=== PATIENT | female | born 1955 | race Caucasian/White ===

== ENCOUNTER 2020-09-10 17:28 | Inpatient (IN) | payer MEDICARE, OTHER ==
[~2020-09-10] VITALS: Ht 162.6 cm; Wt 54.4 kg
[2020-09-10] MEDS ORDERED: QUET25TA PO (18:01)
[2020-09-10] MEDS ORDERED: ACET-868 PO (18:01)
[2020-09-10] MEDS ORDERED: LORA-259 PO (18:01)
[2020-09-10] MEDS ORDERED: CALC1TAB30 PO (18:01)
[2020-09-10] MEDS ORDERED: FLUT16SP16 (18:01)
[2020-09-10] MEDS ORDERED: MAG30ORA PO (18:01)
[2020-09-10] MEDS ORDERED: TEMA7.5C PO (18:01)
[2020-09-10] MEDS ORDERED: BISA10SU11 RC (18:01)
[2020-09-10] MEDS ORDERED: FERR325T23 PO (18:01)
[2020-09-10] MEDS ORDERED: ATOR10TA PO (18:01)
[2020-09-10] MEDS ORDERED: NA P133E RC (18:01)
[2020-09-10] MEDS ORDERED: PANT40TA2 PO (18:01)
[2020-09-10] MEDS ORDERED: RISP0.2515 PO ×2 (18:01)
[2020-09-10] MEDS ORDERED: BENZ0.5T43 PO (18:01)
[2020-09-10] MEDS ORDERED: MAGN400O6 PO (18:01)
[2020-09-10] MEDS ORDERED: DOCU-141 PO (18:01)
[2020-09-10] MEDS ORDERED: EMPA10TA PO (18:01)
[2020-09-10] MEDS ORDERED: GABA-532 PO ×2 (18:01)
[2020-09-10] MEDS ORDERED: GEMF600T PO (18:01)
[2020-09-10] MEDS ORDERED: SENN-261 PO (18:01)
[2020-09-10 18:17] LABS: BILIRUBIN,URINE NEGATIVE (NEGATIVE); BLOOD, URINE TRACE-INTA Ery/uL (NEGATIVE); COLOR,URINE YELLOW (YELLOW); KETONES,URINE NEGATIVE (NEGATIVE); LEUKOCYTE ESTERASE ,URINE MODERATE (NEGATIVE); NITRITE, URINE POSITIVE (NEGATIVE); PROTEIN,URINE NEGATIVE (NEGATIVE); UGLUCOSE >=1000 mg/dL (NEGATIVE); UROBILINOGEN,URINE 0.2 EU/dL (0.2)
--- NOTE | 2020-09-10 18:30 | NUR ---
Patient came in to the er [facility], from [facility], +SI with plan to break a glass and cut her wrist. On roomair, breathing evenly and unlabored. connected to the monitor and pulse ox. kept comfortable, will continue to monitor accordingly.
[2020-09-10 18:39] LABS: APPEARANCE,URINE CLOUDY (CLEAR); BACTERIA,URINE Moderate /HPF (None Seen); SQUAMOUS EPITHELIAL CELL,UR Few /HPF (None Seen); WBC,URINE 51-80 /HPF (0-3)
[2020-09-10 19:04] LABS: ALANINE AMINOTRANSFERASE 21 U/L (12-78); ALCOHOL, BLOOD < 3 mg/dL (0-0); ALKALINE PHOSPHATASE 109 U/L (46-116); ASPARTATE AMINOTRANSFERASE 17 U/L (15-37); BILIRUBIN,DIRECT 0.1 mg/dL (0.0-0.2); BILIRUBIN,TOTAL 0.4 mg/dL (0.2-1.0); CALCIUM, SERUM 9.8 mg/dL (8.5-10.1); CARBON DIOXIDE 25 mmol/L (21-32); CHLORIDE 98 mmol/L (98-107); GLUCOSE 120 mg/dL (74-106); SODIUM SERUM 136 mmol/L (136-145); UREA NITROGEN, BLOOD 23 mg/dL (7-18)
[2020-09-10 19:14] LABS: POTASSIUM 2.7 mmol/L (3.5-5.1)
--- NOTE | 2020-09-10 19:36 | NUR ---
20g iv line started on LAC
[2020-09-10] MEDS ORDERED: CEFTRIAXONE 1 G in IV D5W 50 ML IV ONE (20:00)
[2020-09-10] MEDS ORDERED: IV NS 0.9% 1,000 ML IV ONE (20:00)
[2020-09-10] MEDS ORDERED: POTASSIUM CHLORIDE 20 MEQ TAB.PRT.SR PO ONE ×2 (20:00→20:05)
[2020-09-10] MEDS ORDERED: CEFTRIAXONE 1GM BAG (ER ONLY) 50 ML IV ONE (20:05)
[2020-09-10] MEDS ORDERED: POTASSIUM CL. PREMIX PERIPHER. 200 ML ONE (20:05)
[2020-09-10 20:12] LABS: BASOPHILS % (AUTO) 0.4 % (0.0-2.0); EOSINOPHILS % (AUTO) 1.7 % (0.0-6.0); HEMATOCRIT 44 % (33-45); HEMOGLOBIN 14.5 g/dL (11.5-14.8); LYMPHOCYTES % (AUTO) 17.9 % (20.0-44.0); MEAN CORPUSCULAR HGB CONC 33 g/dl (31.0-36.0); MEAN CORPUSCULAR VOLUME 91 fL (82-100); MONOCYTES # (AUTO) 0.4 /CMM (0.1-1.30); MONOCYTES % (AUTO) 7.2 % (2.0-12.0); NEUTROPHILS # (AUTO) 3.9 /CMM (1.8-8.9); NEUTROPHILS % (AUTO) 72.8 % (43.0-81.0); PLATELET COUNT (AUTO) 97 /CMM (150-450); RED BLOOD CELL COUNT(AUTO) 4.85 MIL/uL (4.0-5.2); WHITE BLOOD COUNT (AUTO) 5.4 K/uL (4.3-11.0)
[2020-09-10 20:33] LABS: EOSINOPHILS % (MANUAL) 3 % (0-4); LYMPHOCYTES % (MANUAL) 19 % (16-48); MONOCYTES % (MANUAL) 7 % (0-11.0); NEUTROPHILS % (MANUAL) 71 (42-76)
[2020-09-10] MEDS: POTASSIUM CL. PREMIX PERIPHER. 50 ML IV SCH ×4 (20:37→23:34)
--- NOTE | 2020-09-10 20:38 | NUR ---
bag 1 out of 2 is administered Addendum: 09/10/20 at 2117 by AYAAN of potassium chloride
--- NOTE | 2020-09-10 20:49 | NUR ---
BED ASSIGNMENT 116-2
[2020-09-10] MEDS ORDERED: LABETALOL 20 MG/4 ML VIAL IV ONE (21:00)
[2020-09-10] MEDS ORDERED: LABETALOL HCL IV 100MG VIAL ONE (21:04)
--- NOTE | 2020-09-10 21:15 | NUR ---
REC'D NEG COVID RESULTS
--- NOTE | 2020-09-10 21:19 | NUR ---
Received report from BLANCA Perry for [facility]
--- NOTE | 2020-09-10 21:22 | NUR ---
report given to Jes
--- NOTE | 2020-09-10 21:37 | NUR ---
bag 2 of potassium chloride was administered. end time: 9512
--- NOTE | 2020-09-10 21:49 | NUR ---
pt was transferred to the first floor. the rest of possium chloride iv to be given was endorsed and handed to the RN Maryuri
[2020-09-10] MEDS ORDERED: ONDANSETRON HCL/PF 4 MG/2 ML VIAL IVP PRN (22:00)
[2020-09-10] MEDS ORDERED: Z GUARD REMEDY 2 OZ OINT TP PRN (22:00)
[2020-09-10] MEDS ORDERED: risperiDONE 1 MG TABLET PO SCH (22:00)
[2020-09-10] MEDS ORDERED: ACETAMINOPHEN 325 MG TABLET PO PRN (22:00)
[2020-09-10] MEDS ORDERED: QUETIAPINE FUMARATE 25 MG TABLET PO SCH (22:00)
[2020-09-10] MEDS ORDERED: GABAPENTIN 100 MG CAPSULE PO SCH (22:00)
[2020-09-10] MEDS ORDERED: ATORVASTATIN 10 MG TABLET PO SCH (22:00)
[2020-09-10] MEDS ORDERED: Potassium Chloride 20 MEQ in IV LR 1000 ML 1,000 ML IV PRN (22:00)
[2020-09-10] MEDS ORDERED: LORAZEPAM 1 MG TABLET PO PRN (22:00)
[2020-09-10 22:27] VITALS: BP 178/98
--- NOTE | 2020-09-10 22:42 | NUR ---
VACUUM METALIZER OPERATOR NOTE: Pt transferred to unit via gurney. Ambulated to bed w/ steady gait. Admit dx of hypokalemia. A&Ox2, confused. On room air, breathing even and unlabored. No SOB or resp distress noted at this time. SR on tele monitor. IV site on left forearm #20 patent and flushed w/ KCl infusing from ER. Skin check done, skin intact. Pt had suicidal ideations in ER, but denies any ideations or plans as of this time. Denied pain at this time. Safety measures in place. Will continue to monitor.
--- NOTE | 2020-09-10 22:45 | NUR ---
RN NOTE: Rec'd call from refrigeration operator pharmacy regarding pt's Lovenox order. Per pharmacy, pt's platelets too low for Lovenox. Clarified order with refrigeration operator, Dr. Hare who said ok to hold. Noted.
[2020-09-11] VITALS: BP 155/82
--- NOTE | 2020-09-11 00:32 | NUR ---
RN NOTE: Pt to have IV fluids of KCl 20meq in LR. Per RN supervisor forming department, 20meq of KCl only comes in NS or D51/2. Paged solar panel installation supervisor Bentley Hare who gave new order for LR without the potassium. Order noted and carried out.
[2020-09-11] MEDS ORDERED: IV LR 1000 ML 1,000 ML IV PRN (01:00)
[2020-09-11 04:00] VITALS: BP 122/89
[2020-09-11 06:21] LABS: BASOPHILS # (AUTO) 0.1 /CMM (0.0-0.2); BASOPHILS % (AUTO) 1.6 % (0.0-2.0); EOSINOPHILS % (AUTO) 1.5 % (0.0-6.0); HEMATOCRIT 44 % (33-45); HEMOGLOBIN 14.4 g/dL (11.5-14.8); LYMPHOCYTES # (AUTO) 0.9 /CMM (0.8-4.8); LYMPHOCYTES % (AUTO) 14.7 % (20.0-44.0); MEAN CORPUSCULAR HGB CONC 33 g/dl (31.0-36.0); MEAN CORPUSCULAR VOLUME 91 fL (82-100); MONOCYTES # (AUTO) 0.4 /CMM (0.1-1.30); MONOCYTES % (AUTO) 5.9 % (2.0-12.0); NEUTROPHILS # (AUTO) 4.9 /CMM (1.8-8.9); NEUTROPHILS % (AUTO) 76.3 % (43.0-81.0); PLATELET COUNT (AUTO) 107 /CMM (150-450); RED BLOOD CELL COUNT(AUTO) 4.82 MIL/uL (4.0-5.2); WHITE BLOOD COUNT (AUTO) 6.4 K/uL (4.3-11.0)
--- NOTE | 2020-09-11 07:02 | NUR ---
RN CLOSING NOTES: No acute changes noted throughout shift. Remains on room air, no SOB or resp distress noted. Breathing even and unlabored. SR w/ PVC's on tele monitor. 1:1 sitter at bedside. LFA #20 patent and flushing w/ lactated ringers infusing at 80ml/hr. Dressing c/d/i. Kept clean/dry. All due meds given as ordered. Safety measures in place. Will endorse to oncoming nurse for [facility].
[2020-09-11 07:08] LABS: CALCIUM, SERUM 9.7 mg/dL (8.5-10.1); CREATININE 0.7 mg/dL (0.6-1.3); MAGNESIUM 2.5 mg/dL (1.8-2.4); PHOSPHORUS 2.8 mg/dL (2.5-4.9); POTASSIUM 3.2 mmol/L (3.5-5.1)
[2020-09-11] MEDS ORDERED: PANTOPRAZOLE 40 MG TABLET.DR PO SCH (07:30)
--- NOTE | 2020-09-11 07:30 | NUR ---
HSE ADVISOR AM NOTES RECEIVED PT IN BED, AWAKE ALERT X 2, ABLE TO MAKE NEEDS KNOWN, WITH EPISODES OF CONFUSION.ON ROOM AIR, NOT IN ANY DISTRESS, NO SOB, RESPIRATION UNLABORED, SINUS RHYTHM ON MONITOR, HR 80, DENIES PAIN OR DISCOMFORT AT THIS TIME. LEFT FA G18 IV WITH LR AT 80ML/HR. FLUSHES WELL, SITE CLEAR, ON CCHO DIET, ABLE TO AMBULATE TO TOILET WITH ASSISTIVE DEVICE, NO SKIN ISSUES, DISCUSSED PLAN OF CARE, UNABLE TO FULLY UNDERSTAND. SAFETY MEASURES IN PLACE. BED LOW LOCKED, SR UP X 2. SITTER AT BEDSIDE. CALL LIGHT WITHIN REACH. WILL CONTINUE TO MONITOR
[2020-09-11 08:00] VITALS: BP 153/84
[2020-09-11] MEDS ORDERED: POTASSIUM CHLORIDE 20 MEQ TAB.PRT.SR PO ONE (09:00)
[2020-09-11] MEDS ORDERED: ENOXAPARIN SODIUM 40 MG/0.4 ML DISP.SYRIN SQ SCH (09:00)
[2020-09-11] MEDS ORDERED: FLUTICASONE PROPIONATE 16 GM BOTTLE NS SCH (09:00)
[2020-09-11] MEDS ORDERED: risperiDONE 0.25 MG TABLET PO SCH (09:00)
[2020-09-11] MEDS ORDERED: GABAPENTIN 100 MG CAPSULE PO SCH (09:00)
[2020-09-11] MEDS: BENZTROPINE MESYLATE (1 MG) 1 MG TABLET PO SCH ×2 (09:13→16:54)
[2020-09-11] MEDS: FERROUS SULFATE (325 MG) 325 MG/TAB TABLET PO SCH ×2 (09:13→16:54)
[2020-09-11] MEDS: GEMFIBROZIL 600 MG TABLET PO SCH ×2 (09:18→16:54)
--- NOTE | 2020-09-11 09:30 | NUR ---
RN NOTES DUE MEDS GIVEN
[2020-09-11 12:00] VITALS: BP 131/98
--- NOTE | 2020-09-11 16:33 | NUR ---
Rn Transitional Care met with the patient at bedside. Patient is a 65-year-old female. Patient has a 1:1 sitter at bedside. Patient presented to [facility] with suicidal plan to break glass and cut her wrist. SW was able to confirm date of and current address on face sheet. At the beginning of this interview, patients affect was observed to be flat, and patient did not provide much information to this SW. However as this interview progressed, social worker aide observed patient smiling at times. Patient became more engaged in the interview and was able to provide some information, including that she has an older sister Radhika who lives in [place] and brother Jaylyn who lives in [place]. Patient then began stating They want to send me home because my breath stinks. I do not want to go home yet. Per patients sitter, patient has been given mouth wash and patient has swallowed instead of spitting it out. SW offered the patient the opportunity to brush her teeth and the patient remained quiet with a smile on her face. SW asked the patient if she had suicidal thoughts and patient remained quiet. Instructional Technology Specialist was not able to obtain additional information from the patient; patient is a poor historian. SW spoke with singeing torch operator Amy and per singeing torch operator Amy, a psychiatry consult has been placed and currently waiting on psychiatrist to meet with the patient.
--- NOTE | 2020-09-11 17:25 | NUR ---
RN NOTES PATIENT DISCHARGED TO GPS, CLEARED BY MD, STABLE CONDITION. PATIENT APPEARS CALM THE WHOLE SHIFT, BUT WITH EPISODE OF BEING WITHDRAWN, FLAT AFFECT, AND MOSTLY SMILING AND AVOIDING QUESTIONS. NO SOLID AND CLEAR ANSWERS. WAS SEEN BY INTAKE, AWAITING FOR PSYCH TO SEE PATIENT. PROVIDED DISCHARGE INSTRUCTIONS, HEALTH TEACHINGS, AND MED RECON LIST. ALL BELONGINGS CHECKED AND RETURNED. ALL PAPERWORKS SIGNED. ACCOMPANIED BY FLORENCIO AND DG CHARGE NURSE TO [facility] UNIT VIA WHEELCHAIR. REPORT GIVEN TO STAFF EARLIER.
[2020-09-11] MEDS ORDERED: ENOX40DI SQ (17:54)
[2020-09-11] MEDS ORDERED: ALLA266C2 TP (17:54)
[2020-09-11] MEDS ORDERED: DOCUSATE SODIUM 100 MG CAPSULE PO SCH (18:00)
== END 2020-09-11 17:05 | DRG 641 ==
LOC: ER 17:44 → MEDSG1 20:55 → TELE1 22:24 → MEDSG1 09-11 07:52
PROVIDERS: ADMIT Nurse Practitioner Acute Care; ATTEND Nurse Practitioner Acute Care
DX: E87.6 Hypokalemia (principal); N39.0 Urinary tract infection, site not specified; R45.851 Suicidal ideations; E78.5 Hyperlipidemia, unspecified; I10 Essential (primary) hypertension; F20.9 Schizophrenia, unspecified; J44.9 Chronic obstructive pulmonary disease, unspecified; F31.9 Bipolar disorder, unspecified; E11.9 Type 2 diabetes mellitus without complications; Z90.49 Acquired absence of other specified parts of digestive tract; Z79.899 Other long term (current) drug therapy; K21.9 Gastro-esophageal reflux disease without esophagitis; K58.9 Irritable bowel syndrome, unspecified; F41.9 Anxiety disorder, unspecified; J45.909 Unspecified asthma, uncomplicated
CPT/HCPCS: 36415; 80048-TC; 80061-TC; 80076-TC; 81000-TC; 83735-TC; 84100-TC; 85025-TC; 87081-TC; G0378; G0480; J0696; J1650; J3480; J3490; J7030; J7060; J7120

== ENCOUNTER 2020-09-11 17:13 | Inpatient (IN) | payer MEDICARE, OTHER ==
[~2020-09-11] VITALS: Ht 162.6 cm; Wt 54.9 kg
[~2020-09-11 17:13] MED LIST: ACET-868 PO; ATOR10TA PO; BENZ0.5T43 PO; BISA10SU11 RC; CALC1TAB30 PO; DOCU-141 PO; EMPA10TA PO; FERR325T23 PO; FLUT16SP16; GABA-532 PO; GEMF600T PO; LORA-259 PO; MAG30ORA PO; MAGN400O6 PO; NA P133E RC; PANT40TA2 PO; QUET25TA PO; RISP0.2515 PO; SENN-261 PO; TEMA7.5C PO
[2020-09-11] MEDS ORDERED: MAGNESIUM HYDROXIDE 30 ML UDC PO PRN (17:30)
[2020-09-11] MEDS ORDERED: BLOOD SUGAR DIAGNOSTIC 1 EACH STRIP IN ONE (17:30)
--- NOTE | 2020-09-11 17:30 | NUR ---
RN NOTE- PT ARRIVED FROM [facility] WITH DEPRESSION ON A 5150 DTS. SECONDARY DX UTI, HTN, ASTHMA, COPD, HYPOKALEMIA (REPLACED ON [facility]). PT HAS NKA. NOTIFIED OF ADMISSION, ORDERS RECEIVED AND COMPLIED WITH. MRSA SWAB DONE AND LAB NOTIFIED. BS ACCU-CHECK- 168. PT ALERT ORIENTED PERSON PLACE PURPOSE. PT IS 5' 4" TALL. WEIGHT- 121 POUNDS. VS- B/P- 160/102, HR- 98, RR- 20, SATURATION -99%, AFEBRILE 98.0. PTS BP AND HEART RATE HIGHER SHE'S ANXIOUS COMING TO UNIT. CONSENTS COMPLETED. PT PLACED IN ROOM AND NEEDS ATTENDED. INCOMING NOC SHIFT TO COMPLETE ADMISSION
[2020-09-11] MEDS ORDERED: ENOX40DI SQ (17:54)
[2020-09-11] MEDS ORDERED: ALLA266C2 TP (17:54)
[2020-09-11 18:13] VITALS: BP 162/100
--- NOTE | 2020-09-11 18:15 | NUR ---
RN-CO: DR DAVID HAY WAS REQUESTED TO RECONCILE HOME MEDICATIONS.
--- NOTE | 2020-09-11 18:41 | NUR ---
RN-CO: SIBLING GORDY LUJAN IS AWARE THAT PATIENT IS BEING ADMITTED.
[2020-09-11 19:30] VITALS: BP 181/120
[2020-09-11] MEDS ORDERED: Z GUARD REMEDY 2 OZ OINT TP PRN (19:30)
[2020-09-11] MEDS ORDERED: hydrALAZINE HCL 10 MG TABLET PO PRN (19:30)
[2020-09-11] MEDS ORDERED: ACETAMINOPHEN 325 MG TABLET PO PRN (19:30)
[2020-09-11] MEDS: AMLODIPINE BESYLATE 5 MG TABLET PO SCH (19:51)
[2020-09-11 21:35] VITALS: BP 152/98
[2020-09-11] MEDS: ATORVASTATIN 10 MG TABLET PO SCH (21:39)
--- NOTE | 2020-09-11 21:40 | NUR ---
GPS RN NOTES: RECHECKED PTS VITALS WITH BP 152/98, HR 97, OXYGEN 98, TEMP 97.7, RESP 18. NO RESP DISTRESS, BREATHING EVEN AND UNLABORED, NO PAIN AT THIS TIME. PT STATED, "IM OKAY. THANK YOU FOR YOUR HELP." CONTINUE TO MONITOR.
[2020-09-11] MEDS ORDERED: MIRTAZAPINE 15 MG TABLET PO SCH (22:00)
--- NOTE | 2020-09-11 23:02 | NUR ---
GPS RN NOTES: ADMISSION ADMITTED 65 YEAR OLD FEMALE. PT ADMITTED FROM [facility] TO [facility] ON 515. [facility] PER [facility] PT CAME DUE TO SUICIDAL IDEATION WITH A PLAN TO CUT HER WRISTS AND TOLD STAFF THAT SHE WANTED TO BREAK A MIRROR AND KILL HERSELF.PT HAS A LONG HISTORY OF MENTAL HEALTH ISSUES. PT HAS NOT BEEN ABLE TO CONTRACT FOR SAFETY.UPON FACE TO FACE ASSESSMENT PT IS A/O X2-3, COOPERATIVE, FORGETFUL, FLAT AFFECT, DEPRESSED, ANXIOUS, RESERVED, GUARDED, QUIET, SMILING AT TIMES, DISORGANIZED, AND IN DENIAL WHY SHE IS HERE. PT IS VAGUE WHEN ASK ABOUT SI AND PREFERS TO STAY QUIET. PT STATED, "IM FINE." PT DENIES HI AT THIS TIME. PT REFUSED TO SIGN CONSENT PAPERS DUE TO CONFUSION. ENVIRONMENTAL SAFETY CHECK DONE Q15 MIN. ENCOURAGE TO VERBALIZE THOUGHTS AND FEELINGS TO STAFF. ORIENTED PT TO THE UNIT. NURSING ASSESSMENT DONE. SKIN ASSESSMENT DONE. SKIN INTACT. MICA MINER BLASTING CHERRY SORTER SATNAM CAME ASSESSED PT AND REVIEWED MED RECON. DR ADAN CAME TO ASSESS PT WELL WITH NEW ORDERED NOTED AND CARRIED OUT. PTS BROTHER GORDY CALLED AND IS AWARE REGARDING PTS ADMISSION. PT RIGHTS DISCUSSED BY COAT FELLER. PROVIDED PT WITH HANDBOOK AND MED GUIDE. NO SOB. BREATHING EVEN AND UNLABORED. BED ALARM ON. NO PAIN AT THIS TIME. NO RESP DISTRESS.
[2020-09-12 07:16] LABS: ALBUMIN 4.6 g/dL (3.4-5.0); BILIRUBIN,TOTAL 0.9 mg/dL (0.2-1.0); CALCIUM, SERUM 10.2 mg/dL (8.5-10.1); CREATININE 0.8 mg/dL (0.6-1.3); POTASSIUM 3.3 mmol/L (3.5-5.1); TOTAL PROTEIN, SERUM 9.1 g/dL (6.4-8.2)
[2020-09-12] MEDS: AMLODIPINE BESYLATE 5 MG TABLET PO SCH (08:12)
[2020-09-12] MEDS: PANTOPRAZOLE 40 MG TABLET.DR PO SCH (08:12)
[2020-09-12] MEDS: FLUTICASONE PROPIONATE 16 GM BOTTLE NS SCH (08:13)
[2020-09-12] MEDS: GEMFIBROZIL 600 MG TABLET PO SCH ×2 (08:17→17:38)
[2020-09-12] MEDS: risperiDONE 1 MG TABLET PO SCH ×2 (08:17→17:38)
[2020-09-12] MEDS: FERROUS SULFATE (325 MG) 325 MG/TAB TABLET PO SCH ×2 (08:17→17:38)
[2020-09-12] MEDS ORDERED: POTASSIUM CHLORIDE 20 MEQ TAB.PRT.SR PO SCH (09:30)
--- NOTE | 2020-09-12 11:50 | NUR ---
SNF Contact: MONTSE contacted Vijaya ([phone]) from [facility] and inquired if the pt can return to the SNF and she stated that the pt will be able to when stable.
--- NOTE | 2020-09-12 11:58 | NUR ---
Family Contact: MONTSE called the pts brother, Jaylyn ([phone]), and informed him about the pts admission to the [facility] unit. He stated that the goal for the pt is to go to an assisted living but the pt would need to stabilize much further. MONTSE stated that the recommendation is for a SNF and then the pt will be able to go to assisted from there once she is more stable. Pts brother agreed.
--- NOTE | 2020-09-12 15:02 | NUR ---
Initial Discharge Plan: Pt currently resides at [facility] SNF located at [address] [place] [address], [place] [address]; ([phone]). Per pt, she would like to return. SW will work with the pt and the MD regarding appropriate discharge planning. SW will form a safe and proper discharge plan.
[2020-09-12 16:00] VITALS: BP 107/82
[2020-09-12] MEDS: DOCUSATE SODIUM 100 MG CAPSULE PO SCH (17:38)
[2020-09-12] MEDS: LORAZEPAM 0.5 MG TABLET PO PRN (18:43)
--- NOTE | 2020-09-12 18:44 | NUR ---
RN NOTE:MEDICATED WITH ATIVAN 1MG PO X1 FOR ANXIETY WILL CONTINUE TO MONITOR .
[2020-09-12 20:00] VITALS: BP 147/70
[2020-09-12] MEDS: ATORVASTATIN 10 MG TABLET PO SCH (21:16)
--- NOTE | 2020-09-13 00:01 | NUR ---
GPS RN NOTES: UPON DOING ROUNDS, PT AWAKE WALKING IN AND OUT OF HER ROOM. ASKED PT TO EXPRESS THOUGHTS AND FEELINGS TO STAFF. PT STATED, "NOTHING." OFFERED RESTORIL PRN ORDERED. PT REFUSED AND STATED "ILL SLEEP. ILL SLEEP." PT STILL REFUSED X3. CONTINUE TO MONITOR.
[2020-09-13 06:47] LABS: BASOPHILS % (AUTO) 0.1 % (0.0-2.0); EOSINOPHILS % (AUTO) 1.5 % (0.0-6.0); HEMATOCRIT 43 % (33-45); LYMPHOCYTES # (AUTO) 1.5 /CMM (0.8-4.8); LYMPHOCYTES % (AUTO) 19.9 % (20.0-44.0); MEAN CORPUSCULAR HGB CONC 33 g/dl (31.0-36.0); MEAN CORPUSCULAR VOLUME 90 fL (82-100); MONOCYTES # (AUTO) 0.7 /CMM (0.1-1.30); MONOCYTES % (AUTO) 8.9 % (2.0-12.0); NEUTROPHILS # (AUTO) 5.2 /CMM (1.8-8.9); NEUTROPHILS % (AUTO) 69.6 % (43.0-81.0); PLATELET COUNT (AUTO) 121 /CMM (150-450); RED BLOOD CELL COUNT(AUTO) 4.74 MIL/uL (4.0-5.2); WHITE BLOOD COUNT (AUTO) 7.5 K/uL (4.3-11.0)
[2020-09-13 07:47] LABS: BILIRUBIN,TOTAL 0.8 mg/dL (0.2-1.0); CALCIUM, SERUM 9.8 mg/dL (8.5-10.1); CREATININE 0.9 mg/dL (0.6-1.3); POTASSIUM 3.1 mmol/L (3.5-5.1)
[2020-09-13 08:00] VITALS: BP 113/75
[2020-09-13] MEDS: AMLODIPINE BESYLATE 5 MG TABLET PO SCH (08:46)
[2020-09-13] MEDS: GEMFIBROZIL 600 MG TABLET PO SCH ×2 (08:46→16:35)
[2020-09-13] MEDS: FERROUS SULFATE (325 MG) 325 MG/TAB TABLET PO SCH ×2 (08:46→16:35)
[2020-09-13] MEDS: risperiDONE 1 MG TABLET PO SCH ×2 (08:46→16:34)
[2020-09-13] MEDS: PANTOPRAZOLE 40 MG TABLET.DR PO SCH (08:46)
[2020-09-13] MEDS: FLUTICASONE PROPIONATE 16 GM BOTTLE NS SCH (09:08)
[2020-09-13] MEDS ORDERED: POTASSIUM CHLORIDE 20 MEQ TAB.PRT.SR PO ONE (09:30)
[2020-09-13 16:00] VITALS: BP 146/98
[2020-09-13] MEDS: DOCUSATE SODIUM 100 MG CAPSULE PO SCH (17:16)
--- NOTE | 2020-09-13 18:38 | NUR ---
GPS/RN-NOTES UNABLE TO COLLECT URINE SPECIMEN DUE TO PATIENT STATED FORGOT TO SAFE URINE. WILL ENDORSE TO INCOMING SHIFT FOR FOLLOW UP AND CONTINUITY OF CARE.
[2020-09-13 20:08] VITALS: BP 114/66
[2020-09-13] MEDS: ATORVASTATIN 10 MG TABLET PO SCH (21:10)
[2020-09-13 21:38] LABS: BILIRUBIN,URINE NEGATIVE (NEGATIVE); BLOOD, URINE NEGATIVE Ery/uL (NEGATIVE); COLOR,URINE YELLOW (YELLOW); LEUKOCYTE ESTERASE ,URINE TRACE (NEGATIVE); NITRITE, URINE NEGATIVE (NEGATIVE); PH,URINE 5.5 (5.0-8.0); PROTEIN,URINE NEGATIVE (NEGATIVE); UGLUCOSE 500 MG/DL mg/dL (NEGATIVE); UROBILINOGEN,URINE 0.2 EU/dL (0.2)
[2020-09-13 22:37] LABS: BACTERIA,URINE None seen /HPF (None Seen); RBC,URINE 0-2 /HPF (0-2); SQUAMOUS EPITHELIAL CELL,UR Few /HPF (None Seen)
--- NOTE | 2020-09-14 06:26 | NUR ---
GPS RN NOTES: PT. RESTING IN HER ROOM, CALM NOTED AT THIS TIME . NO S/S OF DISTRESS NOTED ,NO CHANGE OF CONDITION NOTED , ALL CARE NEEDS MET ANTICIPATED. MED COMPLIANT ,NO BEHAVIOR PROBLEMS NOTED ,WILL CONTINUE TO MONITOR FOR SAFETY BEHAVIOR, AND ENDORSE TO AM SHIFT FOR CONTINUITY OF CARE.
[2020-09-14 08:00] VITALS: BP 105/65
[2020-09-14] MEDS: risperiDONE 1 MG TABLET PO SCH ×2 (08:44→16:53)
[2020-09-14] MEDS: GEMFIBROZIL 600 MG TABLET PO SCH ×2 (08:44→16:52)
[2020-09-14] MEDS: PANTOPRAZOLE 40 MG TABLET.DR PO SCH (08:44)
[2020-09-14] MEDS: FLUTICASONE PROPIONATE 16 GM BOTTLE NS SCH (08:44)
[2020-09-14] MEDS: AMLODIPINE BESYLATE 5 MG TABLET PO SCH (08:44)
[2020-09-14] MEDS: FERROUS SULFATE (325 MG) 325 MG/TAB TABLET PO SCH ×2 (08:44→16:52)
[2020-09-14] MEDS: CEPHALEXIN MONOHYDRATE 500 MG CAPSULE PO SCH ×2 (12:56→21:10)
[2020-09-14 16:00] VITALS: BP 126/87
[2020-09-14] MEDS: DOCUSATE SODIUM 100 MG CAPSULE PO SCH (16:52)
[2020-09-14 19:48] VITALS: BP 140/79
[2020-09-14] MEDS: ATORVASTATIN 10 MG TABLET PO SCH (21:10)
[2020-09-15] MEDS: ACETAMINOPHEN 325 MG TABLET PO PRN (01:24)
--- NOTE | 2020-09-15 01:27 | NUR ---
GPS RN NOTE: PAIN PT. C/O OF STOMACH PAIN AND REQUESTED TYLENOL. ADMINISTERED TYLENOL 650 MG PO PRN ORDERED. WILL CONTINUE TO MONITOR FOR SAFETY AND BEHAVIOR.
[2020-09-15] MEDS: MAG HYDROX/AL HYDROX/SIMETH 30 ML UDC PO PRN (01:41)
--- NOTE | 2020-09-15 01:41 | NUR ---
GPS RN NOTE: INDIGESTION PT. REQUESTED FOR MAALOX. ADMINISTERED MAALOX 30 ML PO PRN ORDERED. WILL CONTINUE TO MONITOR.
--- NOTE | 2020-09-15 06:59 | NUR ---
GPS RN NOTE: PT. C/O OF CONSTIPATION. ADMINISTERED MOM 30 ML PO PRN ORDERED. WILL CONTINUE TO MONITOR.
[2020-09-15 08:00] VITALS: BP 154/95
[2020-09-15] MEDS: risperiDONE 1 MG TABLET PO SCH ×2 (08:48→16:44)
[2020-09-15] MEDS: GEMFIBROZIL 600 MG TABLET PO SCH ×2 (08:48→16:44)
[2020-09-15] MEDS: PANTOPRAZOLE 40 MG TABLET.DR PO SCH (08:48)
[2020-09-15] MEDS: CEPHALEXIN MONOHYDRATE 500 MG CAPSULE PO SCH ×2 (08:48→21:12)
[2020-09-15] MEDS: FERROUS SULFATE (325 MG) 325 MG/TAB TABLET PO SCH ×2 (08:48→16:44)
[2020-09-15] MEDS: FLUTICASONE PROPIONATE 16 GM BOTTLE NS SCH (08:49)
[2020-09-15] MEDS: AMLODIPINE BESYLATE 5 MG TABLET PO SCH (08:49)
[2020-09-15 16:00] VITALS: BP 150/99
[2020-09-15] MEDS: DOCUSATE SODIUM 100 MG CAPSULE PO SCH (16:44)
[2020-09-15 20:46] VITALS: BP 153/96
[2020-09-15] MEDS: ATORVASTATIN 10 MG TABLET PO SCH (21:12)
[2020-09-15] MEDS: TEMAZEPAM 7.5 MG CAPSULE PO PRN (22:45)
--- NOTE | 2020-09-15 22:48 | NUR ---
GPS RN NOTE: INSOMNIA PT. C/O UNABLE TO SLEEP. ADMINISTERED RESTORIL 15 MG PO PRN ORDERED. WILL CONTINUE TO MONITOR
[2020-09-16 08:00] VITALS: BP 152/97
[2020-09-16] MEDS: GEMFIBROZIL 600 MG TABLET PO SCH ×2 (08:50→16:54)
[2020-09-16] MEDS: PANTOPRAZOLE 40 MG TABLET.DR PO SCH (08:51)
[2020-09-16] MEDS: FERROUS SULFATE (325 MG) 325 MG/TAB TABLET PO SCH ×2 (08:51→16:54)
[2020-09-16] MEDS: AMLODIPINE BESYLATE 5 MG TABLET PO SCH (08:51)
[2020-09-16] MEDS: CEPHALEXIN MONOHYDRATE 500 MG CAPSULE PO SCH (08:51)
[2020-09-16] MEDS: risperiDONE 1 MG TABLET PO SCH ×2 (08:51→16:56)
[2020-09-16] MEDS: FLUTICASONE PROPIONATE 16 GM BOTTLE NS SCH (08:54)
[2020-09-16] MEDS: ACETAMINOPHEN 325 MG TABLET PO PRN (09:43)
--- NOTE | 2020-09-16 09:43 | NUR ---
rn notes administered tylenol 650 mg po prn for headache.
[2020-09-16] MEDS: NITROFURANTOIN/NITROFURAN MAC 100 MG CAPSULE PO SCH ×2 (13:02→21:45)
[2020-09-16] MEDS: LORAZEPAM 0.5 MG TABLET PO PRN (15:44)
[2020-09-16 15:45] VITALS: BP 155/94
[2020-09-16 16:00] VITALS: BP 155/94
[2020-09-16] MEDS: DOCUSATE SODIUM 100 MG CAPSULE PO SCH (16:55)
[2020-09-16 20:27] VITALS: BP 132/85
[2020-09-16] MEDS: ATORVASTATIN 10 MG TABLET PO SCH (21:45)
[2020-09-16] MEDS: TEMAZEPAM 7.5 MG CAPSULE PO PRN (21:46)
--- NOTE | 2020-09-17 06:28 | NUR ---
GPS RN CLOSING NOTES: PT LAYING ON BED SLEEPING INTERMITTENTLY. SLEPT 9HR THIS SHIFT. NO S/S OF DISTRESS. RESPIRATION EVEN AND UNLABORED WITH EQUAL RISE AND FALL OF THE CHEST ON ROOM AIR. ALL PT CARE NEEDS MET ANTICIPATED. BED IS LOCKED AND IN LOWEST POSITION. WILL CONTINUE TO MONITOR AND ENDORSE TO AM SHIFT.
[2020-09-17 08:00] VITALS: BP 151/94
[2020-09-17] MEDS: PANTOPRAZOLE 40 MG TABLET.DR PO SCH (08:02)
[2020-09-17] MEDS: GEMFIBROZIL 600 MG TABLET PO SCH ×2 (08:02→16:19)
[2020-09-17] MEDS: NITROFURANTOIN/NITROFURAN MAC 100 MG CAPSULE PO SCH ×2 (08:02→20:00)
[2020-09-17] MEDS: FERROUS SULFATE (325 MG) 325 MG/TAB TABLET PO SCH ×2 (08:02→16:19)
[2020-09-17] MEDS: risperiDONE 1 MG TABLET PO SCH ×3 (08:02→16:19)
[2020-09-17] MEDS: AMLODIPINE BESYLATE 5 MG TABLET PO SCH (08:05)
[2020-09-17] MEDS: FLUTICASONE PROPIONATE 16 GM BOTTLE NS SCH (08:27)
[2020-09-17] MEDS: ACETAMINOPHEN 325 MG TABLET PO PRN (09:42)
[2020-09-17 16:00] VITALS: BP 162/98
[2020-09-17] MEDS: DOCUSATE SODIUM 100 MG CAPSULE PO SCH (17:18)
--- NOTE | 2020-09-17 18:00 | NUR ---
RN NOTES PATIENT WAS AGITATED BUT AFTER GIVING PM MEDS AND CALMING THE PATIENT, PATIENT WENT BACK TO THE ROOM. BP CHECKED AND WENT DOWN TO 150/90. WILL CONTINUE TO MONITOR AND ENDORSE TO LEAD PRESSER NURSE FOR [facility].
[2020-09-17 20:06] VITALS: BP 152/86
[2020-09-17] MEDS: ATORVASTATIN 10 MG TABLET PO SCH (21:35)
[2020-09-17] MEDS: TEMAZEPAM 7.5 MG CAPSULE PO PRN (21:36)
[2020-09-18] MEDS: ACETAMINOPHEN 325 MG TABLET PO PRN (00:20)
[2020-09-18] MEDS: LORAZEPAM 0.5 MG TABLET PO PRN (00:20)
--- NOTE | 2020-09-18 00:22 | NUR ---
GPS RN note: Patient c/o feeling anxious,restless and body ache ,requested and given Ativan 1 mg PO and Tylenol 650mg Po.will continue to monitor for the effectiveness of the medication .
--- NOTE | 2020-09-18 07:30 | NUR ---
GPS RN NOTE PATIENT IN BED RESTING COMFORTABLY. PATIENT IN NO ACUTE DISTRESS. NO SOB NOTED. PATIENT BREATHING IS EVEN AND UNLABORED. SAFETY PRECAUTIONS IN PLACE. PATIENT BED IS LOCKED AND IN LOWEST POSITION. BED ALARM IS ON. WILL CONTINUE TO MONITOR.
[2020-09-18 08:00] VITALS: BP 97/74
[2020-09-18] MEDS: FLUTICASONE PROPIONATE 16 GM BOTTLE NS SCH (08:47)
[2020-09-18] MEDS: AMLODIPINE BESYLATE 5 MG TABLET PO SCH (08:48)
[2020-09-18] MEDS: PANTOPRAZOLE 40 MG TABLET.DR PO SCH (08:48)
[2020-09-18] MEDS: NITROFURANTOIN/NITROFURAN MAC 100 MG CAPSULE PO SCH ×2 (08:49→21:24)
[2020-09-18] MEDS: FERROUS SULFATE (325 MG) 325 MG/TAB TABLET PO SCH ×2 (08:49→16:50)
[2020-09-18] MEDS: risperiDONE 1 MG TABLET PO SCH ×3 (08:49→16:50)
[2020-09-18] MEDS: GEMFIBROZIL 600 MG TABLET PO SCH ×2 (08:49→16:49)
--- NOTE | 2020-09-18 12:01 | NUR ---
PROBABLE CAUSE HEARING: Patient probable cause hearing was today and it was upheld for grave disability.
[2020-09-18] MEDS: busPIRone 5 MG TABLET PO SCH ×2 (13:22→16:49)
[2020-09-18 16:00] VITALS: BP 151/86
[2020-09-18] MEDS: DOCUSATE SODIUM 100 MG CAPSULE PO SCH (17:05)
--- NOTE | 2020-09-18 18:21 | NUR ---
GPS RN NOTE PATIENT IN BED RESTING COMFORTABLY. PATIENT IN NO ACUTE DISTRESS. NO SOB NOTED. PATIENT BREATHING IS EVEN AND UNLABORED. SAFETY PRECAUTIONS IN PLACE. EXPLAINED ALL DUE MEDS. PATIENT KEPT CLEAN, DRY, AND COMFORTABLE THROUGHOUT SHIFT. PATIENT BED IS LOCKED AND IN LOWEST POSITION. BED ALARM IS ON. WILL ENDORSE CARE TO PM SHIFT FOR [facility].
[2020-09-18 20:16] VITALS: BP 120/68
[2020-09-18] MEDS: ATORVASTATIN 10 MG TABLET PO SCH (21:24)
[2020-09-18] MEDS ORDERED: risperiDONE 1 MG TABLET PO SCH (22:00)
[2020-09-19] MEDS: TEMAZEPAM 7.5 MG CAPSULE PO PRN ×2 (00:15→23:57)
--- NOTE | 2020-09-19 00:17 | NUR ---
GPS RN NOTE: INSOMNIA PT. C/O UNABLE TO SLEEP. ADMINISTERED RESTORIL 15 MG PO PRN ORDERED. WILL CONTINUE TO MONITOR
[2020-09-19 08:00] VITALS: BP 146/82
[2020-09-19] MEDS: risperiDONE 1 MG TABLET PO SCH ×4 (08:59→21:10)
[2020-09-19] MEDS: FERROUS SULFATE (325 MG) 325 MG/TAB TABLET PO SCH ×2 (08:59→16:53)
[2020-09-19] MEDS: PANTOPRAZOLE 40 MG TABLET.DR PO SCH (08:59)
[2020-09-19] MEDS: AMLODIPINE BESYLATE 5 MG TABLET PO SCH (09:00)
[2020-09-19] MEDS: NITROFURANTOIN/NITROFURAN MAC 100 MG CAPSULE PO SCH ×2 (09:00→21:10)
[2020-09-19] MEDS: GEMFIBROZIL 600 MG TABLET PO SCH ×2 (09:00→16:51)
[2020-09-19] MEDS: busPIRone 5 MG TABLET PO SCH ×3 (09:00→16:51)
[2020-09-19] MEDS: FLUTICASONE PROPIONATE 16 GM BOTTLE NS SCH (09:22)
[2020-09-19] MEDS: BENZTROPINE MESYLATE (1 MG) 1 MG TABLET PO SCH ×2 (13:52→16:52)
[2020-09-19] MEDS: LORAZEPAM 0.5 MG TABLET PO PRN (14:52)
--- NOTE | 2020-09-19 14:55 | NUR ---
PT C/O ANXIETY AT THIS TIME. VS WNL. PER PT REQUEST, ATIVAN 1MG PO Q4HR PRN FOR ANXIETY/AGITATION ADMINISTERED PER ORDER AT THIS TIME. WILL CONTINUE TO MONITOR
--- NOTE | 2020-09-19 15:21 | NUR ---
SW Family Contact: This content writer spoke with pt's brother Jaylyn ([phone]) who wanted to know how pt is doing. This content writer explained pt's current situation and how pt has been doing. Pt's brother is worried about pt. This content writer provided emotional support.
[2020-09-19 16:00] VITALS: BP 158/97
[2020-09-19] MEDS: DOCUSATE SODIUM 100 MG CAPSULE PO SCH (17:12)
--- NOTE | 2020-09-19 18:10 | NUR ---
GPS RN NOTES PT RESTING IN BED AT THIS TIME. PT REMAINED STABLE THROUGHOUT SHIFT. PT KEPT CLEAN AND DRY. ALL CARE, NEEDS, MEDICATIONS AND TREATMENT ADMINISTERED ANTICIPATED PER ORDER. SAFETY PRECAUTIONS IN PLACE AND MAINTAINED AT ALL TIMES. BED IN LOWEST LOCKED POSITION, HOB ELEVATED, SIDE RAILS UP X 2, CALL LIGHT WITHIN REACH.
[2020-09-19 19:57] VITALS: BP 130/75
[2020-09-19] MEDS: ATORVASTATIN 10 MG TABLET PO SCH (21:10)
--- NOTE | 2020-09-20 | NUR ---
GPS RN NOTE: INSOMNIA PT. C/O UNABLE TO SLEEP. ADMINISTERED RESTORIL 15 MG PO PRN ORDERED. WILL CONTINUE TO MONITOR
--- NOTE | 2020-09-20 06:26 | NUR ---
GPS RN NOTES: PT. RESTING IN HER ROOM, PT.REMAINED STABLE THROUGHOUT SHIFT, NO S/S OF DISTRESS NOTED , ALL CARE NEEDS MET ANTICIPATED. MED COMPLIANT ,PT. BEHAVIOR UNCOPERTIVE EASILY AGITATED, NEEDS FREQUENTLY REDIRECTIONS ,WILL CONTINUE TO MONITOR FOR SAFETY BEHAVIOR, AND ENDORSE TO AM SHIFT FOR CONTINUITY OF CARE.
[2020-09-20 08:00] VITALS: BP 126/78
[2020-09-20] MEDS: PANTOPRAZOLE 40 MG TABLET.DR PO SCH (08:41)
[2020-09-20] MEDS: NITROFURANTOIN/NITROFURAN MAC 100 MG CAPSULE PO SCH ×2 (08:47→20:53)
[2020-09-20] MEDS: GEMFIBROZIL 600 MG TABLET PO SCH ×2 (08:47→16:35)
[2020-09-20] MEDS: risperiDONE 1 MG TABLET PO SCH ×4 (08:47→21:24)
[2020-09-20] MEDS: AMLODIPINE BESYLATE 5 MG TABLET PO SCH (08:47)
[2020-09-20] MEDS: busPIRone 5 MG TABLET PO SCH ×3 (08:47→16:35)
[2020-09-20] MEDS: FERROUS SULFATE (325 MG) 325 MG/TAB TABLET PO SCH ×2 (08:47→16:35)
[2020-09-20] MEDS: BENZTROPINE MESYLATE (1 MG) 1 MG TABLET PO SCH ×3 (08:47→16:34)
[2020-09-20] MEDS: FLUTICASONE PROPIONATE 16 GM BOTTLE NS SCH (08:49)
[2020-09-20 16:00] VITALS: BP 140/89
[2020-09-20] MEDS: DOCUSATE SODIUM 100 MG CAPSULE PO SCH (17:46)
[2020-09-20 19:42] VITALS: BP 130/75
[2020-09-20 19:50] VITALS: BP 130/75
[2020-09-20] MEDS: ATORVASTATIN 10 MG TABLET PO SCH (21:24)
[2020-09-20] MEDS: TEMAZEPAM 7.5 MG CAPSULE PO PRN (22:39)
--- NOTE | 2020-09-20 22:41 | NUR ---
GPS RN NOTE: INSOMNIA PATIENT KEEPS COMING IN & OUT OF HER ROOM, VERBALIZED SHE IS UNABLE TO SLEEP & REQUESTED TO TAKE SLEEPING MEDICINE. PRN RESTORIL 15 MG PO GIVEN. WILL CONTINUE TO MONITOR FOR ANY CHANGES.
[2020-09-21] MEDS: MAG HYDROX/AL HYDROX/SIMETH 30 ML UDC PO PRN (05:18)
--- NOTE | 2020-09-21 05:18 | NUR ---
GPS RN NOTE: MAALOX GIVEN PATIENT C/O UPSET STOMACH, NO NAUSEA, VOMITING, DIARRHEA NOTED. PRN MAALOX 30 ML PO GIVEN. WILL CONTINUE TO MONITOR.
[2020-09-21 07:18] LABS: BASOPHILS % (AUTO) 0.7 % (0.0-2.0); EOSINOPHILS % (AUTO) 1.5 % (0.0-6.0); HEMATOCRIT 37 % (33-45); HEMOGLOBIN 12.4 g/dL (11.5-14.8); LYMPHOCYTES % (AUTO) 23.4 % (20.0-44.0); MEAN CORPUSCULAR HGB CONC 33 g/dl (31.0-36.0); MEAN CORPUSCULAR VOLUME 89 fL (82-100); MONOCYTES # (AUTO) 0.3 /CMM (0.1-1.30); MONOCYTES % (AUTO) 7.4 % (2.0-12.0); NEUTROPHILS # (AUTO) 2.9 /CMM (1.8-8.9); PLATELET COUNT (AUTO) 115 /CMM (150-450); RED BLOOD CELL COUNT(AUTO) 4.15 MIL/uL (4.0-5.2); WHITE BLOOD COUNT (AUTO) 4.3 K/uL (4.3-11.0)
[2020-09-21 07:44] LABS: ALBUMIN 3.6 g/dL (3.4-5.0); BILIRUBIN,TOTAL 0.4 mg/dL (0.2-1.0); CALCIUM, SERUM 9.1 mg/dL (8.5-10.1); CREATININE 0.8 mg/dL (0.6-1.3); POTASSIUM 3.3 mmol/L (3.5-5.1); TOTAL PROTEIN, SERUM 6.9 g/dL (6.4-8.2)
[2020-09-21 08:00] VITALS: BP 163/85
[2020-09-21] MEDS: PANTOPRAZOLE 40 MG TABLET.DR PO SCH (08:26)
[2020-09-21] MEDS: FERROUS SULFATE (325 MG) 325 MG/TAB TABLET PO SCH ×2 (08:27→17:36)
[2020-09-21] MEDS: AMLODIPINE BESYLATE 5 MG TABLET PO SCH (08:27)
[2020-09-21] MEDS: busPIRone 5 MG TABLET PO SCH ×3 (08:27→17:36)
[2020-09-21] MEDS: GEMFIBROZIL 600 MG TABLET PO SCH ×2 (08:27→17:35)
[2020-09-21] MEDS: risperiDONE 1 MG TABLET PO SCH ×4 (08:27→21:54)
[2020-09-21] MEDS: BENZTROPINE MESYLATE (1 MG) 1 MG TABLET PO SCH ×3 (08:27→17:36)
[2020-09-21] MEDS: FLUTICASONE PROPIONATE 16 GM BOTTLE NS SCH (08:30)
[2020-09-21] MEDS ORDERED: POTASSIUM CHLORIDE 20 MEQ TAB.PRT.SR PO ONE (10:00)
[2020-09-21] MEDS: LORAZEPAM 0.5 MG TABLET PO PRN ×2 (10:21→17:36)
--- NOTE | 2020-09-21 10:21 | NUR ---
RN NOTE: ANXIETY PT PACING IN HALLWAY. PT HYPERVERBAL AND RUMINATING RE ROOMATE NOT LIKING HER. UNABLE TO BE REDIRECTED. MEDICATED WITH ATIVAN ALONG WITH POTASSIUM REPLACEMENT. WILL CONT TO MONITOR PT FOR ANXIETY AND EFFECTIVENESS OF PRN
[2020-09-21 16:00] VITALS: BP 148/92
--- NOTE | 2020-09-21 17:39 | NUR ---
RN NOTE: ANXIETY PT EXHIBITING INCREASED ANXIETY AND AGITATION. PT RUMINATING RE TALKING TO HER SISTER AND "HOW BAD I LOOK". UNABLE TO BE REDIRECTED. MEDICATED WITH ATIVAN PO PRN.
[2020-09-21] MEDS: DOCUSATE SODIUM 100 MG CAPSULE PO SCH (18:43)
[2020-09-21 19:50] VITALS: BP 110/65
[2020-09-21 20:32] VITALS: BP 110/65
[2020-09-21] MEDS: ATORVASTATIN 10 MG TABLET PO SCH (21:48)
[2020-09-22 08:00] VITALS: BP 121/82
[2020-09-22] MEDS: BENZTROPINE MESYLATE (1 MG) 1 MG TABLET PO SCH ×3 (08:35→17:14)
[2020-09-22] MEDS: FLUTICASONE PROPIONATE 16 GM BOTTLE NS SCH (08:35)
[2020-09-22] MEDS: AMLODIPINE BESYLATE 5 MG TABLET PO SCH (08:36)
[2020-09-22] MEDS: FERROUS SULFATE (325 MG) 325 MG/TAB TABLET PO SCH ×2 (08:36→17:14)
[2020-09-22] MEDS: GEMFIBROZIL 600 MG TABLET PO SCH ×2 (08:36→17:14)
[2020-09-22] MEDS: risperiDONE 1 MG TABLET PO SCH ×4 (08:36→21:07)
[2020-09-22] MEDS: busPIRone 5 MG TABLET PO SCH ×3 (08:36→17:14)
[2020-09-22] MEDS: PANTOPRAZOLE 40 MG TABLET.DR PO SCH (08:36)
[2020-09-22 16:00] VITALS: BP 163/83
[2020-09-22] MEDS: DOCUSATE SODIUM 100 MG CAPSULE PO SCH (17:14)
[2020-09-22 20:12] VITALS: BP 131/83
[2020-09-22] MEDS: ATORVASTATIN 10 MG TABLET PO SCH (21:07)
[2020-09-22] MEDS: TEMAZEPAM 7.5 MG CAPSULE PO PRN (21:49)
--- NOTE | 2020-09-22 21:51 | NUR ---
GPS RN NOTE: INSOMNIA PT. UNABLE TO SLEEP. ADMINISTERED RESTORIL 15 MG PO PRN ORDERED. WILL CONTINUE TO MONITOR
[2020-09-23] MEDS: ACETAMINOPHEN 325 MG TABLET PO PRN (04:18)
--- NOTE | 2020-09-23 04:20 | NUR ---
GPS RN NOTE: PT. C/O OF HEADACHE. ADMINISTERED TYLENOL 650 MG PO PRN ORDERED. WILL CONTINUE TO MONITOR.
[2020-09-23] MEDS: MAG HYDROX/AL HYDROX/SIMETH 30 ML UDC PO PRN (06:12)
--- NOTE | 2020-09-23 06:13 | NUR ---
GPS RN NOTE: INDIGESTION PT. REQUESTED FOR MAALOX. ADMINISTERED MAALOX 30 ML PO PRN ORDERED. WILL CONTINUE TO MONITOR.
[2020-09-23 08:00] VITALS: BP 103/69
[2020-09-23] MEDS: PANTOPRAZOLE 40 MG TABLET.DR PO SCH (08:11)
[2020-09-23] MEDS: risperiDONE 1 MG TABLET PO SCH ×4 (08:11→21:20)
[2020-09-23] MEDS: BENZTROPINE MESYLATE (1 MG) 1 MG TABLET PO SCH ×3 (08:12→16:23)
[2020-09-23] MEDS: busPIRone 5 MG TABLET PO SCH ×3 (08:12→16:23)
[2020-09-23] MEDS: AMLODIPINE BESYLATE 5 MG TABLET PO SCH (08:12)
[2020-09-23] MEDS: GEMFIBROZIL 600 MG TABLET PO SCH ×2 (08:12→16:23)
[2020-09-23] MEDS: FLUTICASONE PROPIONATE 16 GM BOTTLE NS SCH (08:15)
[2020-09-23] MEDS: FERROUS SULFATE (325 MG) 325 MG/TAB TABLET PO SCH ×2 (08:15→16:27)
[2020-09-23] MEDS: LORAZEPAM 0.5 MG TABLET PO PRN (13:49)
--- NOTE | 2020-09-23 14:54 | NUR ---
RN NOTE: ANXIETY PT PACING IN HALLWAY. PT HYPERVERBAL RESTLESS ANXIOUS ATIVAN 1 MG PO PRN GIVEN PER ORDER WILL CONT TO MONITOR PT FOR ANXIETY AND EFFECTIVENESS OF PRN
[2020-09-23 16:00] VITALS: BP 97/68
[2020-09-23] MEDS: DOCUSATE SODIUM 100 MG CAPSULE PO SCH (18:17)
[2020-09-23 19:58] VITALS: BP 121/72
[2020-09-23] MEDS: ATORVASTATIN 10 MG TABLET PO SCH (21:20)
[2020-09-24] MEDS: ACETAMINOPHEN 325 MG TABLET PO PRN (06:13)
--- NOTE | 2020-09-24 06:15 | NUR ---
GPS RN NOTE: PT. C/O OF HEADACHE. ADMINISTERED TYLENOL 650 MG PO PRN ORDERED. WILL CONTINUE TO MONITOR.
[2020-09-24] MEDS: PANTOPRAZOLE 40 MG TABLET.DR PO SCH (07:35)
[2020-09-24 08:00] VITALS: BP 138/100
--- NOTE | 2020-09-24 08:00 | NUR ---
RN NOTE- PT VISIBLE ON UNIT, PACING HALLS ASKING FOR PSYCHIATRIST, FOCUS ON DC, PO INTAKE GOOD MED COMPLIANT, CONFUSED DIRECTABLE, DENIES SI HI AH VH
[2020-09-24] MEDS: risperiDONE 1 MG TABLET PO SCH ×4 (08:24→21:24)
[2020-09-24] MEDS: FERROUS SULFATE (325 MG) 325 MG/TAB TABLET PO SCH ×2 (08:24→16:02)
[2020-09-24] MEDS: busPIRone 5 MG TABLET PO SCH ×3 (08:24→16:02)
[2020-09-24] MEDS: AMLODIPINE BESYLATE 5 MG TABLET PO SCH (08:24)
[2020-09-24] MEDS: GEMFIBROZIL 600 MG TABLET PO SCH ×2 (08:24→16:02)
[2020-09-24] MEDS: BENZTROPINE MESYLATE (1 MG) 1 MG TABLET PO SCH ×3 (08:25→16:02)
[2020-09-24] MEDS: FLUTICASONE PROPIONATE 16 GM BOTTLE NS SCH (08:27)
--- NOTE | 2020-09-24 12:37 | NUR ---
Family Contact: SW called pt's brother Jaylyn ([phone]) and informed him that the pt is going to be discharged to [facility] the following day. Pts brother asked the SW to give him an update regarding the pts current behaviors and current medications. Pts brother then asked if he can speak to the MD as he has concerns about the pts discharge. SW stated that she would pass along the message.
[2020-09-24 16:00] VITALS: BP 138/94
[2020-09-24] MEDS: DOCUSATE SODIUM 100 MG CAPSULE PO SCH (17:00)
[2020-09-24] MEDS: LORAZEPAM 0.5 MG TABLET PO PRN (18:24)
[2020-09-24 20:00] VITALS: BP 120/75
[2020-09-24] MEDS: ATORVASTATIN 10 MG TABLET PO SCH (21:24)
[2020-09-24] MEDS: DONEPEZIL 5 MG TABLET PO SCH (21:24)
[2020-09-25 07:27] LABS: BASOPHILS % (AUTO) 0.4 % (0.0-2.0); EOSINOPHILS % (AUTO) 1.6 % (0.0-6.0); HEMATOCRIT 40 % (33-45); HEMOGLOBIN 12.8 g/dL (11.5-14.8); LYMPHOCYTES # (AUTO) 0.9 /CMM (0.8-4.8); LYMPHOCYTES % (AUTO) 24.1 % (20.0-44.0); MEAN CORPUSCULAR HGB CONC 32 g/dl (31.0-36.0); MEAN CORPUSCULAR VOLUME 93 fL (82-100); MONOCYTES # (AUTO) 0.3 /CMM (0.1-1.30); MONOCYTES % (AUTO) 7.2 % (2.0-12.0); NEUTROPHILS # (AUTO) 2.4 /CMM (1.8-8.9); NEUTROPHILS % (AUTO) 66.7 % (43.0-81.0); PLATELET COUNT (AUTO) 110 /CMM (150-450); RED BLOOD CELL COUNT(AUTO) 4.25 MIL/uL (4.0-5.2); WHITE BLOOD COUNT (AUTO) 3.7 K/uL (4.3-11.0)
[2020-09-25] MEDS: PANTOPRAZOLE 40 MG TABLET.DR PO SCH (07:34)
[2020-09-25] MEDS: ACETAMINOPHEN 325 MG TABLET PO PRN (07:35)
--- NOTE | 2020-09-25 07:35 | NUR ---
RN NOTE- C/O HEADACHE. TYLENOL 650 MG GIVEN
[2020-09-25 07:48] LABS: CALCIUM, SERUM 9.3 mg/dL (8.5-10.1); CREATININE 0.8 mg/dL (0.6-1.3); MAGNESIUM 2.5 mg/dL (1.8-2.4); PHOSPHORUS 3.7 mg/dL (2.5-4.9); POTASSIUM 3.5 mmol/L (3.5-5.1)
[2020-09-25 08:00] VITALS: BP 142/80
[2020-09-25] MEDS: busPIRone 5 MG TABLET PO SCH ×3 (08:33→16:59)
[2020-09-25] MEDS: FERROUS SULFATE (325 MG) 325 MG/TAB TABLET PO SCH ×2 (08:34→16:59)
[2020-09-25] MEDS: AMLODIPINE BESYLATE 5 MG TABLET PO SCH (08:34)
[2020-09-25] MEDS: GEMFIBROZIL 600 MG TABLET PO SCH ×2 (08:34→16:59)
[2020-09-25] MEDS: BENZTROPINE MESYLATE (1 MG) 1 MG TABLET PO SCH ×3 (08:34→16:59)
[2020-09-25] MEDS: risperiDONE 1 MG TABLET PO SCH ×4 (08:34→21:21)
[2020-09-25] MEDS: FLUTICASONE PROPIONATE 16 GM BOTTLE NS SCH (08:38)
--- NOTE | 2020-09-25 08:49 | NUR ---
Discharge Note: Pt was discharged to [facility] [place] [facility] (SNF) located at [address] [place] [address]; ([phone]). Pts brother, Jaylyn ([phone]), was made aware of the discharge. Pt was transported via [facility] at 12PM (Trip #[id number]). Upon discharge, the pt appeared to be in a euthymic mood and presented with an agitated affect. Pt appeared to be alert and oriented x4 (time, place, self and situation). Pt appeared to be well groomed and appropriately dressed. Pt denied having any suicidal or homicidal ideation and stated that she does not have any auditory or visual hallucinations. Pt will be under the care of her psychiatrist, Dr. Boland, located at [address] [facility] [address], [place] [address]; and emergency department manager, Dr. Jamil, located at [address] [facility], [address], [place] [address], . Pt signed the Choice of Vendor form and the multidisciplinary exit care form was done, printed, signed, and given to the patient. Addendum: 09/25/20 at 0927 by MONTSE CADENA DISCHARGE WAS CANCELLED.
--- NOTE | 2020-09-25 09:00 | NUR ---
RN NOTE- PT ALERT FOCUS ON DR AGUILAR,PO INTAKE GOOD MED COMPLIANT, CONFUSED DIRECTABLE, DENIES SI [facility]
--- NOTE | 2020-09-25 09:59 | NUR ---
Pts discharge was cancelled per Dr. Boland.
--- NOTE | 2020-09-25 10:05 | NUR ---
Family Contact: MONTSE called pt's brother Jaylyn ([phone]) and left a message stating that the pts discharge was postponed per MD.
[2020-09-25] MEDS: LORAZEPAM 0.5 MG TABLET PO PRN (10:53)
--- NOTE | 2020-09-25 10:53 | NUR ---
RN NOTE- C/O ANXIETY ATIVAN 1 MG GIVEN
[2020-09-25] MEDS: clonazePAM 0.5 MG TABLET PO SCH ×2 (13:30→16:58)
[2020-09-25 16:00] VITALS: BP 120/74
[2020-09-25] MEDS: DOCUSATE SODIUM 100 MG CAPSULE PO SCH (17:00)
--- NOTE | 2020-09-25 19:35 | NUR ---
GPS RN NOTE: PATIENT RESTING IN BED, NO ACUTE DISTRESS NOTED. BREATHING EVEN AND UNLABORED, NO SOB NOTED. PATIENT CALM AND COOPERATIVE AT THIS TIME. BED LOCKED AND IN LOWEST POSITION, CALL LIGHT IN REACH. WILL CONTINUE TO MONITOR.
[2020-09-25 21:21] VITALS: BP 95/53
[2020-09-25] MEDS: ATORVASTATIN 10 MG TABLET PO SCH (21:21)
[2020-09-25] MEDS: DONEPEZIL 5 MG TABLET PO SCH (21:21)
[2020-09-26 08:00] VITALS: BP 147/90
[2020-09-26] MEDS: ACETAMINOPHEN 325 MG TABLET PO PRN (08:09)
[2020-09-26] MEDS: PANTOPRAZOLE 40 MG TABLET.DR PO SCH (08:09)
[2020-09-26] MEDS: risperiDONE 1 MG TABLET PO SCH ×4 (08:10→21:13)
[2020-09-26] MEDS: busPIRone 5 MG TABLET PO SCH ×4 (08:10→20:38)
[2020-09-26] MEDS: AMLODIPINE BESYLATE 5 MG TABLET PO SCH (08:11)
[2020-09-26] MEDS: BENZTROPINE MESYLATE (1 MG) 1 MG TABLET PO SCH ×3 (08:11→16:21)
[2020-09-26] MEDS: clonazePAM 0.5 MG TABLET PO SCH ×3 (08:12→16:21)
[2020-09-26] MEDS: FLUTICASONE PROPIONATE 16 GM BOTTLE NS SCH (08:17)
[2020-09-26] MEDS: GEMFIBROZIL 600 MG TABLET PO SCH ×2 (08:17→16:23)
[2020-09-26] MEDS: FERROUS SULFATE (325 MG) 325 MG/TAB TABLET PO SCH ×2 (08:17→16:23)
--- NOTE | 2020-09-26 09:45 | NUR ---
GPS RN NOTE: T.O. ORDER FROM DR. SIERRA CLONAZEPAM 0.25 MG PO ONCE CHANGE CLONAZEPAM 0.5 MG PO TID. ORDER PLACED AND CARED OUT WILL CONTINUE MONITORING.
[2020-09-26] MEDS ORDERED: clonazePAM 0.5 MG TABLET PO ONE (10:00)
--- NOTE | 2020-09-26 11:40 | NUR ---
Individual Intervention with the pt: SW informed the pt that she will be discharged soon either tomorrow or Thursday and pt stated that she wants to confirm with her MD.
--- NOTE | 2020-09-26 11:50 | NUR ---
Family Contact: MONTSE called pt's brother Jaylyn ([phone]) and informed him that the pt will be discharged on Thursday and he stated that was acceptable.
[2020-09-26 16:00] VITALS: BP 142/92
[2020-09-26] MEDS: DOCUSATE SODIUM 100 MG CAPSULE PO SCH (17:09)
[2020-09-26 20:27] VITALS: BP 140/90
[2020-09-26] MEDS: DONEPEZIL 5 MG TABLET PO SCH (21:13)
[2020-09-26] MEDS: ATORVASTATIN 10 MG TABLET PO SCH (21:14)
[2020-09-27] MEDS: ACETAMINOPHEN 325 MG TABLET PO PRN (06:18)
--- NOTE | 2020-09-27 06:19 | NUR ---
GPS-RN NOTE: C/O HEADACHE PATIENT C/O HEADACHE ON A PAIN SCALE OF 3/10. ADMINISTERED ACETAMINOPHEN 650MG PO ORDERED. WILL CONTINUE TO REASSESS.
[2020-09-27 08:00] VITALS: BP 139/94
[2020-09-27] MEDS: busPIRone 5 MG TABLET PO SCH ×4 (08:37→21:24)
[2020-09-27] MEDS: PANTOPRAZOLE 40 MG TABLET.DR PO SCH (08:37)
[2020-09-27] MEDS: GEMFIBROZIL 600 MG TABLET PO SCH ×2 (08:37→17:37)
[2020-09-27] MEDS: FERROUS SULFATE (325 MG) 325 MG/TAB TABLET PO SCH ×2 (08:37→17:37)
[2020-09-27] MEDS: risperiDONE 1 MG TABLET PO SCH ×4 (08:37→21:23)
[2020-09-27] MEDS: clonazePAM 0.5 MG TABLET PO SCH ×3 (08:37→17:37)
[2020-09-27] MEDS: BENZTROPINE MESYLATE (1 MG) 1 MG TABLET PO SCH ×3 (08:37→17:38)
[2020-09-27] MEDS: AMLODIPINE BESYLATE 5 MG TABLET PO SCH (08:38)
[2020-09-27] MEDS: FLUTICASONE PROPIONATE 16 GM BOTTLE NS SCH (08:41)
[2020-09-27 16:00] VITALS: BP 114/73
[2020-09-27] MEDS: DOCUSATE SODIUM 100 MG CAPSULE PO SCH (17:37)
[2020-09-27 19:48] VITALS: BP 103/61
[2020-09-27] MEDS: ATORVASTATIN 10 MG TABLET PO SCH (21:23)
[2020-09-27] MEDS: DONEPEZIL 5 MG TABLET PO SCH (21:24)
[2020-09-28] MEDS: clonazePAM 0.5 MG TABLET PO SCH ×2 (07:47→12:00)
[2020-09-28] MEDS: busPIRone 5 MG TABLET PO SCH ×2 (07:47→12:00)
[2020-09-28] MEDS: AMLODIPINE BESYLATE 5 MG TABLET PO SCH (07:47)
[2020-09-28] MEDS: GEMFIBROZIL 600 MG TABLET PO SCH (07:47)
[2020-09-28] MEDS: BENZTROPINE MESYLATE (1 MG) 1 MG TABLET PO SCH ×2 (07:47→12:00)
[2020-09-28] MEDS: PANTOPRAZOLE 40 MG TABLET.DR PO SCH (07:48)
[2020-09-28] MEDS: risperiDONE 1 MG TABLET PO SCH ×2 (07:48→12:02)
[2020-09-28] MEDS: FERROUS SULFATE (325 MG) 325 MG/TAB TABLET PO SCH (07:48)
[2020-09-28] MEDS: FLUTICASONE PROPIONATE 16 GM BOTTLE NS SCH (07:49)
[2020-09-28 08:00] VITALS: BP 152/77
--- NOTE | 2020-09-28 10:20 | NUR ---
Dr. Boland gave an order to D/C hold and [facility], to continue same meds including prn and to follow up with psych and medical doctors.
--- NOTE | 2020-09-28 11:05 | NUR ---
GPS/RN STUDIO REHAB CALLED FOR REPORT. THE NURSE IS BUSY, SHE WILL CALL BACK TO [facility] PER AIRPORT LOCATION MANAGER.
--- NOTE | 2020-09-28 11:18 | NUR ---
SNF Contact: MONTSE faxed updated notes to [facility] with attn to Maribel to the fax number: [phone].
--- NOTE | 2020-09-28 11:18 | NUR ---
Family Contact: MONTSE called pt's brother Jaylyn ([phone]) and informed him that the pt will be discharged today to [facility] around noon via voicemail.
--- NOTE | 2020-09-28 12:30 | NUR ---
GPS/RN PT DISCHARGED TO Pt was discharged to [facility] (SNF) located at [address] [place] [address]; ([phone]) ROOM 30B. REPORT GIVEN TO JUSTIN. NO SI /HI OR AVH REPORTED AT THE TIME OF D/C. PRESCRIPTIONS AND EXIT CARE INSTRUCTIONS GIVEN. PROPERTY RETURN. PT REFUSED TO SIGN FOR D/C PAPERWORK.VSS. AMBULATORY. LEFT VIA AMBULANCE
--- NOTE | 2020-09-28 12:41 | NUR ---
Discharge Note: Pt was discharged to [facility] (SNF) located at [address] [place] [address]; ([phone]). Pts brother, Jaylyn ([phone]), was made aware of the discharge. Pt was transported via [facility] at 12PM. Upon discharge, the pt appeared to be in a euthymic mood and presented with an agitated affect. Pt appeared to be alert and oriented x4 (time, place, self and situation). Pt appeared to be well groomed and appropriately dressed. Pt denied having any suicidal or homicidal ideation and stated that she does not have any auditory or visual hallucinations. Pt will be under the care of her psychiatrist, Dr. Boland, located at [address] [facility] [address], [place] [address]; and electrical design technician, Dr. Jamil, located at [address] [facility], [address], [place] [address], . Pt signed the Choice of Vendor form and the multidisciplinary exit care form was done, printed, signed, and given to the patient.
== END 2020-09-28 12:30 | DRG 885 ==
LOC: GPS 17:13
PROVIDERS: ADMIT Psychiatry & Neurology Psychiatry; ATTEND Nurse Practitioner Acute Care
DX: F25.0 Schizoaffective disorder, bipolar type (principal); R45.851 Suicidal ideations; N39.0 Urinary tract infection, site not specified; F32.9 Major depressive disorder, single episode, unspecified; F29 Unspecified psychosis not due to a substance or known physiological condition; E78.5 Hyperlipidemia, unspecified; F41.9 Anxiety disorder, unspecified; I10 Essential (primary) hypertension; K21.9 Gastro-esophageal reflux disease without esophagitis; J44.9 Chronic obstructive pulmonary disease, unspecified; K58.9 Irritable bowel syndrome, unspecified; Z90.49 Acquired absence of other specified parts of digestive tract; Z91.5 Personal history of self-harm; E11.9 Type 2 diabetes mellitus without complications; B96.20 Unspecified Escherichia coli [E. coli] as the cause of diseases classified elsewhere; E87.6 Hypokalemia; R41.89 Other symptoms and signs involving cognitive functions and awareness
CPT/HCPCS: 36415; 70450-TC; 80048-TC; 80053-TC; 80061-TC; 81000-TC; 82962-TC; 83735-TC; 84100-TC; 85025-TC; 87081-TC; 87086-TC; 87186-TC